=== PATIENT | female | born 1985 | race Caucasian/White ===

== ENCOUNTER 2016-11-19 19:14 | Emergency (ER) | payer OTHER ==
[~2016-11-19 19:14] MED LIST: ALBUTEROL17 G1 IH; ALBUTEROL17 GM; AMOXICILLIN PO; CIPRO PO; DICLOFENAC PO; DOXYCYCLINE150 MG PO; FLEXERIL PO; IBUPROFEN PO; MOTRIN600 MG; PERCOCET5/325 PO; PHENERGAN PO; PHENERGAN W/CO120 ML PO; PRENATAL1 TA1 PO; REGLAN10 MG PO; ULTRAM PO; VICODIN 5/500 T1 TAB PO
[2016-11-19 21:11] LABS: URINE SOURCE CLEAN CATCH
[2016-11-19 21:31] LABS: URINE APPEARANCE CLOUDY; URINE BILIRUBIN NEG (NEG); URINE BLOOD TRACE (NEG); URINE COLOR DK YELLOW; URINE GLUCOSE NEG (NEG); URINE KETONE TRACE (NEG); URINE LEUKOCYTE ESTERASE NEG (NEG); URINE NITRATE NEG (NEG); URINE PROTEIN 1+ (NEG)
[2016-11-19 21:35] LABS: URBCS1 AUWI 0-2 /[HPF] (0-2); URINE BACTERIA AUWI NEG (NEGATIVE); URINE SQUAMOUS EPITHELIAL CELL NONE SEEN /[HPF]; UWBCS1 AUWI 0-2 (0-5)
[2016-11-19 21:52] LABS: CULTURE INDICATED? NO; URINE CRYSTALS CALCIUM OXALATE /[HPF]
[2016-11-22 06:13] LABS: CHLAMYDIA TRACH Not Detected (Not Detected); N GONOR Not Detected (Not Detected)
== END 2016-11-19 22:55 | disposition home or self-care (01) ==
LOC: CFTX 19:14 → CED 19:14 → CFTX 21:17
PROVIDERS: Nurse Practitioner
DX: N76.4 Abscess of vulva (principal); F17.210 Nicotine dependence, cigarettes, uncomplicated
CPT/HCPCS: 56405; 81003; 84703; 87070; 87205; 87491; 87591; 87808; 87905; 99283